=== PATIENT | female | born 1995 | race Asian ===

== ENCOUNTER 2017-01-14 10:21 | Outpatient (CLI) | payer OTHER ==
[2017-01-14 10:36] LABS: PLATELET COUNT 166 K/uL (152-353)
[2017-01-14 11:00] LABS: SODIUM 136 mmol/L (136-145)
== END 2017-01-14 19:30 | disposition home or self-care (01) ==
LOC: LABW 10:21
PROVIDERS: Nurse Practitioner Family
DX: Z79.899 Other long term (current) drug therapy (principal); Z51.81 Encounter for therapeutic drug level monitoring; R53.83 Other fatigue; R42 Dizziness and giddiness; J30.2 Other seasonal allergic rhinitis; Z13.220 Encounter for screening for lipoid disorders
CPT/HCPCS: 36415; 80053; 80061; 84443; 85027